=== PATIENT | female | born 1975 | race Caucasian/White ===

== ENCOUNTER 2017-01-13 18:32 | Emergency (ER) | payer BC, OTHER, SELFPAY ==
[2017-01-13 18:37] VITALS: BP 120/76
--- NOTE | 2017-01-13 19:03 | EDM.PDOC ---
ED HPI GENERAL MEDICAL PROBLEM - General Chief Complaint: General Stated Complaint: "burning toes" Time Seen by Provider: 01/13/17 19:01 Source of Information: Reports: Patient History Limitations: Reports: No limitations - History of Present Illness INITIAL COMMENTS - FREE TEXT/NARRATIVE: This patient is a 41 year old female that presents to the ER. Patient reports about two hours ago she began to have burning of all of her toes bilaterally. The patient reports she thought it was athletes foot, applied gold pierce, but the burn got worse. She reports she went to work and had to leave early because her toes were burning to bad. Patient denies injury, history of this before, diabetes, neuropathy, melendez, dizziness, n, v, d, f, cough, congestion, redness, swelling, heat, draiange, open wounds. It involves right and left all toes. Pulses +2, cap refill <2 sec, sensory/motor function intact. Neurovascular intact. Patient is able to ambulate. 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 [No Known Home Meds] 01/13/17 [History] Past Medical History - Past Surgical History GI Surgical History: Reports: Appendectomy Female Surgical History: Reports: Tubal ligation Social & Family History - Tobacco Use Smoking Status *Q: Never Smoker - Caffeine Use Caffeine Use: Reports: None - Recreational Drug Use Recreational Drug Use: No ED ROS GENERAL - Review of Systems Review Of Systems: See Below Constitutional: Reports: no symptoms HEENT: Reports: No symptoms Respiratory: Reports: No Symptoms Cardiovascular: Reports: No symptoms Endocrine: Reports: no symptoms GI/Abdominal: Reports: No symptoms : Reports: no symptoms Musculoskeletal: Reports: other (all toes pain burning) Skin: Reports: no symptoms Neurological: Reports: No Symptoms Psychiatric: Reports: No symptoms Hematologic/Lymphatic: Reports: no symptoms Immunologic: Reports: no symptoms ED EXAM, GENERAL - Physical Exam Exam: See Below Exam Limited By: No limitations General Appearance: alert, WD/WN, no apparent distress Eye Exam: bilateral eye: normal inspection, PERRL Ears: normal external exam, normal canal, hearing grossly normal, normal TMs Ear Exam: bilateral ear: auricle normal, canal normal, TM normal Nose: normal inspection, normal mucosa, no blood Throat/Mouth: Normal inspection, Normal lips, Normal teeth, Normal gums, Normal oropharynx, Normal voice, No airway compromise Head: atraumatic, normocephalic Neck: normal inspection, supple, non-tender, full range of motion Respiratory/Chest: no respiratory distress, lungs clear, normal breath sounds, no accessory muscle use Cardiovascular: normal peripheral pulses, regular rate, rhythm, no edema, no gallop, no JVD, no murmur, no rub Peripheral Pulses: 2+: posterior tibial (L), posterior tibial (R), dorsalis pedis (L), dorsalis pedis (R) Back Exam: normal inspection, full range of motion Extremities: normal inspection, normal range of motion, no pedal edema, normal capillary refill, other (pain, tenderness all toes. No swelling, redness, heat, open wounds, drainage. No obvious signs of njury or infection. Sensation intact. ). No: pedal edema, slow capillary refill, joint swelling, arm pain, Alicja's Sign, leg pain, limited range of motion, increased warmth, mottled, pallor, redness Course - Vital Signs Last Recorded V/S: Last Vital Signs Temp 96.8 F 01/13/17 18:33 Pulse 62 01/13/17 18:33 Resp 20 01/13/17 18:33 BP 120/76 01/13/17 18:33 Pulse Ox 97 01/13/17 18:33 - Orders/Labs/Meds Labs: Laboratory Tests 01/13/17 01/13/17 01/13/17 Range/Units 19:18 19:18 19:18 WBC 4.7 L (5.0-10.0) 10^3/uL RBC 4.75 (4.00-5.50) 10^6/uL Hgb 13.8 (12.0-16.0) g/dL Hct 41.7 (37.0-47.0) % MCV 87.8 (82.0-94.0) fL MCH 29.1 (27.0-32.0) pg MCHC 33.1 (33.0-38.0) g/dL RDW Coeff of Rich 15.0 (11.0-15.0) % Plt Count 210 (150-400) 10^3/uL Neut % (Auto) 62.4 (35-85) % Lymph % (Auto) 28.8 (10-55) % Beaver % (Auto) 6.9 (0-16) % Eos % (Auto) 1.5 (0-5) % Baso % (Auto) 0.4 (0-3) % Neut # (Auto) 2.91 (1.80-7.00) 10^3/uL Lymph # (Auto) 1.34 (1.00-4.80) 10^3/uL Beaver # (Auto) 0.32 (0.00-0.80) 10^3/uL Eos # (Auto) 0.07 (0.00-0.45) 10^3/uL Baso # (Auto) 0.02 10^3/uL ESR 15 (0-20) mm/hr Sodium 141 (136-145) mEq/L Potassium 4.3 (3.5-5.0) mEq/L Chloride 105 (98-106) mEq/L Carbon Dioxide 28 (21-32) mmol/L BUN 17 (7-18) mg/dL Creatinine 0.7 (0.6-1.0) mg/dL Est Cr Clr Drug Dosing 115.82 mL/min Estimated GFR (MDRD) > 60 (>=60) mL/min Glucose 91 (75-99) mg/dL Uric Acid 2.5 L (2.6-6.0) mg/dL Calcium 8.8 (8.4-10.1) mg/dL Total Bilirubin 1.0 (0.0-1.0) mg/dL AST 23 (15-37) U/L ALT 32 (12-78) U/L Alkaline Phosphatase 89 (46-116) U/L C-Reactive Protein < 0.2 L (0.2-0.8) mg/dL Total Protein 7.7 (6.4-8.2) g/dL Albumin 3.8 (3.4-5.0) g/dL Meds: Medications Discontinued Medications Generic Name Dose Route Start Last Admin Trade Name Freq PRN Reason Stop Dose Admin Ketorolac Tromethamine 60 mg 01/13/17 19:27 01/13/17 19:33 Toradol IM 01/13/17 19:28 60 mg ONETIME ONE Administration Departure - Departure Time of Disposition: 19:40 Disposition: Home, Self-Care 01 Condition: good Clinical Impression: Toe pain, bilateral Referrals: Jessica Hollingsworth PA [Primary Care Provider] - Forms: ED Department Discharge Additional Instructions: Followup with your primary care provider Return to the ER for worsening of condition or any emergent concerns Rest your feet Indomethacin 50mg 1 pill three times a day as needed for pain #30 no refill - Assessment/Plan Plan: PLEASE SEE RN NOTE FOR PFSH.
[2017-01-13] MEDS ORDERED: Ketorolac 60 MG/2 ML SDV IM ONE (19:27)
[2017-01-13 19:34] LABS: CHLORIDE,CL 105 mEq/L (98-106); SODIUM,NA 141 mEq/L (136-145)
== END 2017-01-13 19:50 | disposition home or self-care (01) ==
LOC: CC.ED 18:32
DX: M79.675 Pain in left toe(s) (principal); M79.674 Pain in right toe(s); Z90.49 Acquired absence of other specified parts of digestive tract; Z98.51 Tubal ligation status
CPT/HCPCS: 36415; 80053; 84550; 85025; 85651; 86140; 96372; 99283; J1885

== ENCOUNTER → 2019-03-04 | Day surgery (SDC) | payer BC ==
--- NOTE | 2019-03-09 17:11 | OR ---
DATE OF OPERATION: 03/04/2019 PREOPERATIVE DIAGNOSIS: INSUFFICIENT ANTERIOR ACCESSORY SAPHENOUS VEIN WITH ASSOCIATED PAINFUL VARICOSITIES. POSTOPERATIVE DIAGNOSIS: INSUFFICIENT ANTERIOR ACCESSORY SAPHENOUS VEIN WITH ASSOCIATED PAINFUL VARICOSITIES. SURGEON: Vinicius Cool MD PROCEDURE: ULTRASOUND-GUIDED FOAM SCLEROTHERAPY, INSUFFICIENT RIGHT ANTERIOR ACCESSORY SAPHENOUS VEIN. ANESTHESIA: Local. COMPLICATIONS: None. SPECIMEN: None. FINDINGS: Successful foam sclerotherapy, right anterior accessory saphenous vein. INDICATIONS: The patient has had prior endovenous ablation of her greater saphenous vein on the right side and she has ongoing symptoms of venous insufficiency including painful varicosities coming off her insufficient right AASV. This was too tortuous to ablate with a catheter. We elected to proceed with foam sclerotherapy under ultrasound guidance. DESCRIPTION OF PROCEDURE: The patient was brought to the operating room suite, laid in the supine position and the insufficient anterior accessory saphenous vein in the right leg was verified via ultrasound and diagrammed on the overlying skin. The skin was prepped with an alcohol and water solution. Three separate injection sites were planned for the anterior accessory vein approximately 10 to 12 cm apart. Ultrasound guidance was used to document entry of the needle into the affected vein and dispersion of the foam sclerosant, 0.3% sodium tetradecyl solution was used in usual fashion. 0.5 mL was used with 2 mL of air and foam sclerosant was injected under ultrasound guidance without any complication. This was done at the proximal, mid, and distal portion of the anterior accessory saphenous vein using ultrasound guidance and sterile technique without any complication. Leg was kept in the elevated position after three 2.5 mL aliquots were injected with sodium tetradecyl without any complication. The access sites had no complications. The leg was wrapped in usual fashion and the patient was stable in the recovery room upon completion. EDEL/MANUEL /[id number]
== END ==
LOC: CC.SDS 11:15
PROVIDERS: ATTEND Family Medicine
DX: I87.2 Venous insufficiency (chronic) (peripheral) (principal)